=== PATIENT | female | born 1960 | race African-American/Black ===

== ENCOUNTER 2019-07-08 15:05 | Emergency (ER) | payer BC ==
[~2019-07-08] VITALS: Ht 167.6 cm; Wt 97.7 kg
[~2019-07-08 15:05] MED LIST: HCTZ 25MG TAB25 MG PO; KLOR-CON 1010 MEQ PO; NORVASC 10MG10 MG PO; PROTONIX 40MG T40 MG PO
[2019-07-08 15:16] VITALS: BP 167/86; TEMP 98.3
[2019-07-08] MEDS ORDERED: ZITHROMAX Z PA250 MG PO (17:43)
[2019-07-08] MEDS ORDERED: AFRIN 15 ML15 ML NS (17:45)
[2019-07-08 18:02] VITALS: PULSE 70
== END 2019-07-08 18:03 | disposition home or self-care (01) ==
LOC: COL.ER 15:05
DX: J06.9 Acute upper respiratory infection, unspecified (principal)